=== PATIENT | female | born 1985 | race Caucasian/White ===

== ENCOUNTER 2018-04-05 15:00 | Emergency (ER) | payer OTHER ==
[2018-04-05 16:23] LABS: BASO % 0.4 % (0.0-2.0); EOS # 0.1 K/uL (0.0-0.7); EOS % 1.5 % (0.0-4.0); HEMOGLOBIN 13.9 g/dL (12.0-16.0); LYMPH # 2.3 K/uL (1.0-4.3); LYMPH % 26.4 % (20.0-40.0); MEAN CELL VOLUME 89.6 fl (81.0-99.0); MEAN CORPUSCULAR HEMOGLOBIN 30.8 pg (27.0-31.0); MEAN CORPUSCULAR HGB CONC 34.4 g/dL (33.0-37.0); MEAN PLATELET VOLUME 9.4 fl (7.2-11.7); MONO # 0.5 K/uL (0.0-0.8); MONO % 6.2 % (0.0-10.0); NEUT # 5.8 K/uL (1.8-7.0); NEUT % 65.5 % (50.0-75.0); RBC 4.52 Mil/uL (3.80-5.20); RED CELL DISTRIBUTION WIDTH 13.4 % (11.5-14.5); WHITE BLOOD COUNT 8.9 K/uL (4.8-10.8)
[2018-04-05 16:26] LABS: INR 1.1; PROTHROMBIN TIME 11.9 Seconds (9.8-13.1)
[2018-04-05 16:29] LABS: PARTIAL THROMBOPLASTIN TIME 32.8 Seconds (25.6-37.1)
[2018-04-05 16:33] LABS: BLOOD UREA NITROGEN 14 mg/dl (7-17); CALCIUM 9.6 mg/dL (8.4-10.2); GFR NON-AFRICAN AMERICAN > 60
--- NOTE | 2018-04-05 17:28 | ED PDOC ---
HPI: Female Pain Time Seen by Provider: 04/05/18 15:14 Chief Complaint (Nursing): Female Genitourinary Chief Complaint (Provider): Female Genitourinary History Per: Patient History/Exam Limitations: no limitations Onset/Duration Of Symptoms: Days (x2) Current Symptoms Are (Timing): Still Present Quality Of Discomfort: Cramping Additional Complaint(s): 32 y/o female is A0 and 7 weeks presents to the ED complaining of vaginal bleeding and lower abdominal pain. Patient describes abdominal pain as cramping. Patient states when symptoms started with light spotting and pain but has now progressed to be dark and bloody. Patient reports of filling one panty liner in the last two hours. Patient states she has her first appointment on April 15 and is otherwise taking vitamins with no problem. Patient is in otherwise good health. Patient reports of mild morning sickness throughout but has otherwise felt fine. PMD: Melissa Cr Abnormal Vaginal Bleeding: Yes : 1 Para: 0 Miscarriage: 0 Past Medical History Reviewed: Historical Data, Nursing Documentation, Vital Signs Vital Signs: Last Vital Signs Temp 98.4 F 04/05/18 15:07 Pulse 72 04/05/18 15:07 Resp 19 04/05/18 15:07 BP 127/77 04/05/18 15:07 Pulse Ox 100 04/05/18 15:07 - Medical History PMH: No Chronic Diseases - Surgical History Other surgeries: discectomy - Family History Family History: States: Unknown Family Hx - Allergies Allergies/Adverse Reactions: Allergies Allergy/AdvReac Type Severity Reaction Status Date / Time No Known Allergies Allergy Verified 04/05/18 15:06 Review of Systems ROS Statement: Except As Marked, All Systems Reviewed And Found Negative Gastrointestinal: Positive for: Abdominal Pain (lower) Genitourinary Female: Positive for: Vaginal Bleeding Physical Exam - Reviewed Vital Signs Reviewed: Yes - Physical Exam Appears: Positive for: Non-toxic, No Acute Distress Head Exam: Positive for: ATRAUMATIC, NORMOCEPHALIC Skin: Positive for: Normal Color, Warm, Dry Eye Exam: Positive for: Normal appearance, EOMI, PERRL Neck: Positive for: Normal, Painless ROM Cardiovascular/Chest: Positive for: Regular Rate, Rhythm. Negative for: Murmur Respiratory: Positive for: Normal Breath Sounds. Negative for: Respiratory Distress Gastrointestinal/Abdominal: Positive for: Normal Exam, Soft. Negative for: Tenderness Pelvic Exam: Positive for: Other (Deferred) Back: Positive for: Normal Inspection. Negative for: L CVA Tenderness, R CVA Tenderness, Vertebral Tenderness Extremity: Positive for: Normal ROM. Negative for: Pedal Edema, Deformity Neurologic/Psych: Positive for: Alert, Oriented. Negative for: Motor/Sensory Deficits - Laboratory Results Result Diagrams: 04/05/18 16:10 04/05/18 16:10 - ECG O2 Sat by Pulse Oximetry: 100 (RA) Pulse Ox Interpretation: Normal Medical Decision Making Medical Decision Making: Time: 161 -- Work up for threatened -- Labs including Beta-HCG and Type and Screen sent. Order for Transvaginal US to determine IUP. -- Discussed a possibility for miscarriage with patient and . -- Re-evaluate patient. -- Type and Screen -- BMP -- Beta-HCG, Quantitative -- CBC with differentials -- PTT -- Prothrombin Time -- Preg 1st Trimester/OB TV US Time: 1807 US RESULTS FINDINGS: Uterus is anteverted measuring 7.7 x 4.3 x 4.0 cm There is a small fluid collection within endometrial canal likely possibly representing a gestational sac measuring approximately 0.6 cm which is at [place] of range. . . No yolk sac or pole identified. While this may represent very early intrauterine gestation, the possibility of demise or an ectopic must be excluded. Recommend followup serial serum beta HCG and serial ultrasound to assess for development of viable gestation or ectopic . Right ovary measures 2.6 x 2.1 x 1.7 cm and left ovary measures 1.8 x 1.8 x 1.5 cm. Both ovaries exhibit arterial flow. No free fluid seen in cul-de-sac. IMPRESSION: No evidence of viable intrauterine gestation however small fluid collection in the endometrial canal could represent very early gestational sac. Possibility of ectopic not excluded. While this may represent very early intrauterine gestation, the possibility of demise or an ectopic must be excluded. Recommend followup serial serum beta HCG and serial ultrasound to assess for development of viable gestation or or ectopic . Time: 1847 -- Labs showed HCG levels of 3300. Pelvic ultrasound showed small fluid collection within the endometrial canal that could represents a very early gestational sac. No yolk sac or pole. It is unclear if there is an early intrauterine gestation or demise. Findings discussed with patient and is instructed to follow up with [employer] OPERATOR on Saturday for repeat HCG levels and possible repeat ultrasound. Return parameters discussed with patient and her . Patient with stable vitals to be discharged home. Rest of labs were otherwise unremarkable. ___ Scribe Attestation: Documented by Medina Moreno acting as a scribe for Dr. Aspen Agrawal MD. Provider Scribe Attestation: All medical record entries made by the Scribe were at my direction and personally dictated by me. I have reviewed the chart and agree that the record accurately reflects my personal performance of the history, physical exam, medical decision making, and the department course for this patient. I have also personally directed, reviewed, and agree with the discharge instructions and disposition. Disposition - Clinical Impression Clinical Impression: Threatened in early - Disposition Disposition: Routine/Home Disposition Time: 19:00 Condition: IMPROVED Additional Instructions: Follow up with primary medical doctor/scaffolding helper on Saturday (in 2 days) for repeated hCG levels and possible repeat ultrasound. Today your hCG level is 3, 386. Return to the emergency department if you develop worsened abdominal pain , dizziness, weakness, or worsened bleeding. Instructions: Threatened Miscarriage, Threatened Miscarriage (DC) Forms: [employer] (Croatian) Print Language: [place]
--- NOTE | 2018-04-05 18:09 | US ---
Date of service: 04/05/2018 PROCEDURE: Pelvic ultrasound dated 04/05/2018 HISTORY: 7 weeks with vaginal bleed COMPARISON: No prior study available comparison. TECHNIQUE: Transabdominal/transvaginal sonographic evaluation of the pelvis performed FINDINGS: Uterus is anteverted measuring 7.7 x 4.3 x 4.0 cm There is a small fluid collection within endometrial canal likely possibly representing a gestational sac measuring approximately 0.6 cm which is at [place] of range. . . No yolk sac or pole identified. While this may represent very early intrauterine gestation, the possibility of demise or an ectopic must be excluded. Recommend followup serial serum beta HCG and serial ultrasound to assess for development of viable gestation or ectopic . Right ovary measures 2.6 x 2.1 x 1.7 cm and left ovary measures 1.8 x 1.8 x 1.5 cm. Both ovaries exhibit arterial flow. No free fluid seen in cul-de-sac. IMPRESSION: No evidence of viable intrauterine gestation however small fluid collection in the endometrial canal could represent very early gestational sac. Possibility of ectopic not excluded. While this may represent very early intrauterine gestation, the possibility of demise or an ectopic must be excluded. Recommend followup serial serum beta HCG and serial ultrasound to assess for development of viable gestation or or ectopic .
[2018-04-05 19:06] VITALS: BP 123/75; PULSE 74; RESP 16; TEMP 98.2
[2018-04-06 12:55] VITALS: O2SAT 100
== END 2018-04-05 19:06 | disposition home or self-care (01) ==
LOC: H.ER 15:00
DX: O20.0 Threatened abortion (principal); Z36.87 Encounter for antenatal screening for uncertain dates; R10.2 Pelvic and perineal pain; Z3A.01 Less than 8 weeks gestation of pregnancy